=== PATIENT | female | born 1955 | race Caucasian/White ===

== ENCOUNTER → 2017-10-15 | Outpatient (CLI) | payer OTHER ==
[~2017-10-15] MED LIST: CLI150 PO; DOC240 PO; PER PO
--- NOTE | 2017-10-16 08:31 | RADIOLOGY IMAGING REPORT ---
FACILITY: [facility] PATIENT NAME: KIRA MCCLELLAN : [id number] MR: [id number] V: [id number] EXAM DATE: [id number] ORDERING PHYSICIAN: DEDE PASTOR TECHNOLOGIST: Luana Thomson PROCEDURE:BILATERAL DIGITAL SCREENING MAMMOGRAM WITH CAD ASSISTED INTERPRETATION AND 3D BREAST TOMOSYNTHESIS. COMPARISON:Prior mammograms dated 09/13/16, 08/11/13, 07/03/12 and 06/07/11. INDICATIONS:SCREENING FINDINGS: A small amount of fibroglandular tissue is seen throughout the breasts. The parenchymal pattern has remained stable when allowing for difference in mammographic technique and patient positioning. There is no evidence of malignant appearing mass, malignant appearing calcification or other secondary sign of malignancy in either breast. DIAGNOSTIC CATEGORY 1--NEGATIVE. RECOMMENDATIONS: ROUTINE MAMMOGRAM AND CLINICAL EVALUATION. IMPRESSION: Bi-RADS 1: No significant abnormality is seen. Images were reviewed with R2CAD and 3D breast tomosynthesis. Dictated by: Dilma Hatfield M.D. on 10/15/2017 at 15:55 Transcribed by: NEVIN on 10/15/2017 at 19:46 Approved by: Dilma Hatfield M.D. on 10/16/2017 at 8:30 [facility]
== END ==
LOC: MAMO 01:15
PROVIDERS: ATTEND Physician Assistant
DX: Z12.31 Encounter for screening mammogram for malignant neoplasm of breast (principal)
CPT/HCPCS: 77063; 77067

== ENCOUNTER → 2018-10-23 | Outpatient (CLI) | payer OTHER ==
--- NOTE | 2018-10-23 13:34 | RADIOLOGY IMAGING REPORT ---
FACILITY: [facility] PATIENT NAME: KIRA MCCLELLAN : [id number] MR: [id number] V: [id number] EXAM DATE: [id number] ORDERING PHYSICIAN: DEDE PASTOR TECHNOLOGIST: Luana Thomson PROCEDURE:BILATERAL DIGITAL SCREENING MAMMOGRAM WITH CAD ASSISTED INTERPRETATION & 3D TOMOSYNTHESIS COMPARISON:Prior mammograms 10/15/17, 09/13/16, 08/11/13, 07/03/12. INDICATIONS:SCREENING FINDINGS: Scattered fibroglandular densities are seen throughout the breasts. The parenchymal pattern has remained stable allowing for difference in mammographic technique & patient positioning. DIAGNOSTIC CATEGORY 1--NEGATIVE. RECOMMENDATIONS: ROUTINE MAMMOGRAM AND CLINICAL EVALUATION. IMPRESSION: BIRADS 1: Negative. No significant abnormality is seen. Dictated by: Dilma Hatfield M.D. on 10/23/2018 at 12:37 Transcribed by: KAIT on 10/23/2018 at 13:30 Approved by: Dilma Hatfield M.D. on 10/23/2018 at 13:33 [facility]
== END ==
LOC: MAMO 01:59
PROVIDERS: ATTEND Physician Assistant
DX: Z12.31 Encounter for screening mammogram for malignant neoplasm of breast (principal)
CPT/HCPCS: 77063; 77067

== ENCOUNTER → 2019-03-16 | Outpatient (CLI) | payer OTHER ==
[2019-03-16 09:26] LABS: INR 0.86
--- NOTE | 2019-03-16 15:38 | RADIOLOGY IMAGING REPORT ---
FACILITY: [facility] PATIENT NAME: Jayda Piña : 1955 MR: [id number] V: [id number] EXAM DATE: ORDERING PHYSICIAN: DEDE PASTOR TECHNOLOGIST: Location: [facility] Patient: Jayda Piña : 1955 Visit/Account:[id number] Date of Sevice: 03/16/2019 Exam type: US BIOPSY LOC/INJ THYROID History: Left thyroid nodule Comparison: Outside thyroid ultrasound Findings: Informed consent was obtained. The left-sided the patient's neck was prepped and draped usual steril e fashion. Local anesthesia was accomplished with 1% lidocaine. Under sonographic guidance four 25- gauge FNA biopsies were obtained through the dominant left thyroid nodule. Samples were given to the fiber technologist for processing. The procedure was accomplished without apparent complication . IMPRESSION: 1. Successful sonographically guided left-sided thyroid biopsy Report Dictated By: Dilma Hatfield MD at 03/16/2019 3:31 PM Report E-Signed By: Dilma Hatfield MD at 03/16/2019 3:33 PM WSN:[email or web address]
== END ==
LOC: US 00:31
PROVIDERS: ATTEND Physician Assistant
DX: E04.1 Nontoxic single thyroid nodule (principal)
CPT/HCPCS: 10005; 36415; 85049; 85610; 85730; 88104; 88172